=== PATIENT | male | born 1995 | race Two or more races ===

== ENCOUNTER 2019-07-26 12:52 | Emergency (ER) | payer SELFPAY ==
[~2019-07-26] VITALS: Ht 175.3 cm; Wt 84.3 kg
[2019-07-26 13:02] VITALS: BP 129/72
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
[2019-07-26] MEDS: TETANUS AND DIPHTHERIA TOX/PF 0.5 ML DISP.SYRIN. VAX IM ONE (13:45)
== END 2019-07-26 13:48 | disposition home or self-care (01) ==
LOC: ER 12:52
DX: S00.83XA Contusion of other part of head, initial encounter (principal); S40.011A Contusion of right shoulder, initial encounter; S20.211A Contusion of right front wall of thorax, initial encounter; H11.31 Conjunctival hemorrhage, right eye; R68.84 Jaw pain; Y08.89XA Assault by other specified means, initial encounter; Y93.89 Activity, other specified; Y92.89 Other specified places as the place of occurrence of the external cause; Y99.8 Other external cause status
CPT/HCPCS: 90471; 90714; 99283